=== PATIENT | female | born 1970 | race Caucasian/White ===

== ENCOUNTER → 2018-04-06 | Outpatient (CLI) | payer OTHER ==
[~2018-04-06] MED LIST: CIP500 PO; ETON1VAG7 VG; MULT1CAP41 PO; NAPR-723 PO; PHENA200 PO
--- NOTE | 2018-04-06 09:12 | RADIOLOGY IMAGING REPORT ---
FACILITY: [facility] [place] PATIENT NAME: Selina Alex : 1970 MR: [id number] V: [id number] EXAM DATE: ORDERING PHYSICIAN: LUCIO TUCKER TECHNOLOGIST: Location: [facility] Patient: Selina Alex : 1970 Visit/Account:[id number] Date of Sevice: 04/06/[address] scan without contrast HISTORY: Migraines COMPARISONS: None TECHNIQUE: Non-contrast head CT was performed with sagittal and coronal reformations. One of the following dose optimization techniques was utilized in the performance of this exam: autom ated exposure control; adjustment of the mA and/or kV according to patient size; or use of iterative reconstruction technique. Specific details can be referenced in the facility's radiology CT exam ope rational policy. FINDINGS: There is no intracranial hemorrhage, hydrocephalus or midline shift. The basal cisterns, hernández-white differentiation, and convexity sulci are maintained. Normal orbital soft tissues. No apparent paren chymal abnormality. The mastoid air cells are clear. The paranasal sinuses are clear. The osseous structures are normal . IMPRESSION: Normal head CT. No abnormality seen to explain the migraines. Report Dictated By: Kirill Rivero MD at 04/06/2018 9:03 AM Report E-Signed By: Kirill Rivero MD at 04/06/2018 9:05 AM WSN:[id number]
== END ==
LOC: CT 04:27
PROVIDERS: ATTEND Nurse Practitioner Psychiatric/Mental Health
DX: G43.719 Chronic migraine without aura, intractable, without status migrainosus (principal)
CPT/HCPCS: 70450